=== PATIENT | female | born 1990 | race Caucasian/White ===

== ENCOUNTER 2019-05-21 17:42 | Inpatient (IN) | payer BC ==
--- OUTSIDE RECORDS SUMMARY | 2019-05-21 17:43 | XMS REPORT ---
:1990 [facility] Address [address] [place] [address] Dr. Pérez [address] [place] [id number] Care Team Providers Name Role Phone Unavailable Unavailable Unavailable Problems This patient has no known problems. Allergies, Adverse Reactions, Alerts This patient has no known allergies or adverse reactions. Medications This patient has no known medications.
[2019-05-21] MEDS ORDERED: Ringers Lactate 1,000 ML IV PRN (18:01)
[2019-05-21] MEDS ORDERED: METHYLERGONOVINE 0.2MG/ML AMP IM ONE (18:13)
[2019-05-21] MEDS ORDERED: OXYTOCIN/LR 20 UNIT/1,000 ML BAG IV ONE (18:13)
[2019-05-21] MEDS ORDERED: LIDOCAINE 1% MPF 30 ML VIAL ONE (18:13)
[2019-05-21] MEDS ORDERED: CARBOPROST TROME 250 MCG/ML IM ONE (18:13)
[2019-05-21 18:30] LABS: Absolute Lymphocytes (CBC) 1.8 K/uL (0.7-4.9); Basophils % 0.4 % (0-1.3); Hematocrit 35.5 % (36.0-45.0); MPV 7.9 fL (7.6-11.3); RBC Red Blood Cell Count 3.81 M/uL (3.86-4.86)
[2019-05-21 18:34] VITALS: BMI 33.7
[2019-05-21] MEDS ORDERED: METHYLERGONOVINE 0.2 MG TAB PO PRN (18:40)
[2019-05-21] MEDS ORDERED: CARBOPROST TROME 250 MCG/ML IM PRN (18:40)
[2019-05-21] MEDS ORDERED: IBUPROFEN 600 MG TAB PO PRN (18:40)
[2019-05-21] MEDS ORDERED: ONDANSETRON 4 MG (ODT) TAB PO PRN (18:40)
[2019-05-21] MEDS ORDERED: ACETAMINOPHEN 500 MG TAB PO PRN (18:40)
[2019-05-21] MEDS ORDERED: METHYLERGONOVINE 0.2MG/ML AMP IM PRN (18:40)
--- NOTE | 2019-05-21 18:44 | P.BOP ---
Preoperative diagnosis: 39+wk , active labor Postoperative diagnosis: same SCVD viable male Estimated blood loss: 200 Complications: None Complications: drainage sub urethral divirticulum Transferred to: Other (273) Condition: Good
[2019-05-21] MEDS ORDERED: OXYTOCIN/LR 20 UNIT/1,000 ML BAG IV SCH ×2 (19:00)
[2019-05-21] MEDS ORDERED: Ringers Lactate 1,000 ML IV SCH (19:00)
[2019-05-21 21:11] LABS: RPR (Rapid Plasma Reagin) NON-REACT (NON-REACT)
--- NOTE | 2019-05-22 10:09 | PREOPHP ---
Date of Admission: 05/21/2019 History Of Present Illness: Ms. Vera is a 29-year-old female, 3, para 2-0 -0-2 at 39+ weeks gestation. Admitted in active rapidly advancing labor. 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 She presents with complaints of contraction s, noted to be 5-6 cm dilated. She is admitted for delivery. She denies recent cough, cold, fever. Past Medical History: Please see record. Family History: Please see record. Review of Systems: She reports no recent cough, cold, fever, or chills. No recent nausea or vomiting. No breast knots or lumps. Baby has been active. She denies any urine symptoms. Physical Examination: General: female, moderate to severe discomfort. Neck: Supple without adenopathy or thyromegaly. Lungs: Clear. Cardiac: Regular rate and rhythm without murmurs. Breasts: Not examined. Abdomen: Estimated weight of 7+ to 8 pounds. Pelvic: Cervix noted to be now 7+ to 8 cm vertex presentation -1 to -2 station. Rupture membranes p erformed. Extremities: No cyanosis, clubbing, or edema. Impression: Term , active rapidly advancing labor. Plan: Patient will be admitted for delivery. JAMI/BENITO Voice ID: [id number]
--- NOTE | 2019-05-22 10:18 | DN ---
Surgeon: Emerson Tolentino MD Ms. Vera is 29-year-old female, 3, para 2-0-0-2 at 39 weeks' gestation, admitted i n active rapidly advancing labor. She is noted to be 5+ cm on admission. She had a first stage of l abor approximately 2 hours and 20 minutes, second stage of labor of 10 minutes. She delivered by spo ntaneous controlled vaginal delivery a 10 pound male , 9 and 9, mild shoulder dystocia, t reated with Nikos maneuver with prompt delivery. After delayed cord clamping 's cord was c ut and infant placed on mother's upper abdomen. Cord blood was obtained. Placenta was spontaneously expelled and appeared to be intact. She suffered no lacerations or tears. Estimated total blood lo ss was approximately 200 cc. Of note is at the time of vertex , some purulent material was n oted emanating from top of the vaginal opening consistent with possibly drainage of a suburethral div erticulum. The patient tolerated all procedures well, received no medications for analgesia during h er labor. JAMI/BENITO Voice ID: [id number] Report ID: [id number]
[2019-05-22 16:37] VITALS: TEMP 97.2
[2019-05-22 20:25] VITALS: BP 124/65
--- NOTE | 2019-05-23 07:44 | DS ---
Date of Discharge: 05/22/2019 Final Hospital Discharge Diagnosis: 38+ week , delivered. Complications: None. Procedures: Artificial rupture of membranes, spontaneous controlled vaginal delivery of viable male . Hospital Course: The patient is a 29-year-old female, 3, para 2-0-0-2 at 3 8+ weeks' gestation, admitted with active rapidly advancing labor. She delivered a 10-pound male inf ant, 9 and 9 with an intact perineum. Lab work during this hospital stay included an admission hemoglobin and hematocrit of 12.4 and 35.5, dismissal hematocrit 29.5. She was dismissed to continu e taking her iron and vitamins. She is Rh positive blood type. Nonreactive RPR. VINITAG/MODL Voice ID: [id number] Report ID: [id number]
[2019-05-27 05:30] LABS: HBsAG Nonreactive (Nonreactive)
== END 2019-05-22 20:48 | disposition home or self-care (01) | DRG 807 ==
LOC: L&D 17:42 → 2ND-WC 17:48
PROVIDERS: ADMIT Specialist; ATTEND Specialist
PROC: 10E0XZZ Delivery of Products of Conception, External Approach (ICD-10-PCS; principal; 2019-05-22)
PROC: 10907ZC Drainage of Amniotic Fluid, Therapeutic from Products of Conception, Via Natural or Artificial Opening (ICD-10-PCS; 2019-05-22)
DX: O66.0 Obstructed labor due to shoulder dystocia (principal); Z37.0 Single live birth; O75.89 Other specified complications of labor and delivery; N36.1 Urethral diverticulum; Z3A.39 39 weeks gestation of pregnancy; Z85.850 Personal history of malignant neoplasm of thyroid
CPT/HCPCS: 36415; 85014; 85025; 86592; 86901; 87340; J2210; J2590